=== PATIENT | female | born 1970 | race Caucasian/White ===

== ENCOUNTER → 2024-10-25 06:54 | Outpatient (REF) | payer BC, SELFPAY | LOC: HWWDC 06:54 | PROVIDERS: ATTENDING PHYSICIAN Obstetrics & Gynecology Obstetrics; FAMILY PHYSICIAN Internal Medicine | DX: Z12.31 Encounter for screening mammogram for malignant neoplasm of breast (principal) | CPT/HCPCS: 77063; 77067 ==

== ENCOUNTER → 2025-10-31 08:41 | Outpatient (REF) | payer BC, SELFPAY | LOC: HWWDC 08:41 | PROVIDERS: ATTENDING PHYSICIAN Obstetrics & Gynecology Obstetrics; FAMILY PHYSICIAN Internal Medicine | DX: Z12.31 Encounter for screening mammogram for malignant neoplasm of breast (principal) | CPT/HCPCS: 77063; 77067 ==